=== PATIENT | female | born 1965 | race Caucasian/White ===

== ENCOUNTER 2020-10-30 04:13 | Emergency (ER) | payer OTHER ==
[~2020-10-30] VITALS: Ht 162.5 cm; Wt 56.7 kg
[2020-10-30 05:30] LABS: ALBUMIN 4.2 gm/dl (3.1-4.5); BUN 20 mg/dl (7-24); CHLORIDE 103 mmol/L (98-107); CREATININE 0.79 mg/dL (0.55-1.02); LIPASE 77 U/L (73-393); POTASSIUM 3.7 mmol/L (3.5-5.1); SGOT/AST 7 IU/L (3-35); SGPT/ALT 20 U/L (12-78); SODIUM 139 mmol/L (136-145)
[2020-10-30 05:31] LABS: ALKALINE PHOSPHATASE 72 U/L (45-117)
[2020-10-30 06:07] LABS: BASO # 0.1 10*3/uL (0.0-0.1); BASO % 0.6 % (0.0-1.0); EOS # 0.4 10*3/uL (0.0-0.4); EOS % 3.6 % (1.0-4.0); HEMATOCRIT 50.1 % (37.0-47.0); LYMPH # 0.8 10*3/uL (1.3-4.4); LYMPH % 7.9 % (27.0-41.0); MEAN CELL VOLUME 86.8 fl (81.0-99.0); MEAN CORPUSCULAR HGB 28.4 pg (27.0-31.0); MEAN CORPUSCULAR HGB CONC 32.7 g/dl (33.0-37.0); MONO # 0.4 10*3/uL (0.1-1.0); MONO % 3.5 % (3.0-9.0); NEUT # 8.8 10*3/uL (2.3-7.9); NEUT % 83.3 % (47.0-73.0); PLATELET COUNT AUTOMATED 333 10*3/uL (130-400); RED BLOOD COUNT 5.77 10*6/uL (4.10-5.10); RED CELL DISTRI WIDTH 12.6 % (0-14.5); WHITE BLOOD COUNT 10.5 10*3/uL (4.8-10.8)
[2020-10-30] MEDS ORDERED: ZOFRAN4 MG PO ×2 (09:49→09:55)
== END 2020-10-30 10:16 | disposition home or self-care (01) ==
LOC: ED 04:13
PROVIDERS: Internal Medicine
DX: R11.2 Nausea with vomiting, unspecified (principal); Z20.822 Contact with and (suspected) exposure to COVID-19; R10.11 Right upper quadrant pain; R51.9 Headache, unspecified

== ENCOUNTER 2021-04-20 02:43 | Emergency (ER) | payer OTHER ==
[~2021-04-20] VITALS: Ht 157.4 cm
[~2021-04-20 02:43] MED LIST: ZOFRAN4 MG PO
[2021-04-20] MEDS ORDERED: NAPROXEN250 MG PO (03:43)
[2021-04-20] MEDS ORDERED: METHOCARBAMOL500 M1 PO (03:43)
== END 2021-04-20 04:33 | disposition home or self-care (01) ==
LOC: ED 02:43
DX: S29.012A Strain of muscle and tendon of back wall of thorax, initial encounter (principal); M25.512 Pain in left shoulder; X58.XXXA Exposure to other specified factors, initial encounter; Y93.89 Activity, other specified; Y92.89 Other specified places as the place of occurrence of the external cause; Y99.8 Other external cause status

== ENCOUNTER 2023-03-31 16:55 | Emergency (ER) | payer BC ==
[~2023-03-31] VITALS: Ht 162.5 cm; Wt 59.0 kg
[~2023-03-31 16:55] MED LIST changes: +METHOCARBAMOL500 M1 PO; +NAPROXEN250 MG PO
[2023-03-31 19:43] LABS: BASO # 0.1 10*3/uL (0.0-0.1); BASO % 0.9 % (0.0-1.0); EOS # 0.1 10*3/uL (0.0-0.4); EOS % 1.3 % (1.0-4.0); HEMATOCRIT 44.4 % (37.0-47.0); LYMPH # 1.3 10*3/uL (1.3-4.4); LYMPH % 18.8 % (27.0-41.0); MEAN CELL VOLUME 84.9 fl (81.0-99.0); MEAN CORPUSCULAR HGB 27.7 pg (27.0-31.0); MEAN CORPUSCULAR HGB CONC 32.7 g/dl (33.0-37.0); MEAN PLATELET VOLUME 10.6 fl (9.6-12.3); MONO # 0.5 10*3/uL (0.1-1.0); MONO % 7.6 % (3.0-9.0); NEUT # 4.8 10*3/uL (2.3-7.9); PLATELET COUNT AUTOMATED 279 10*3/uL (130-400); RED BLOOD COUNT 5.23 10*6/uL (4.10-5.10); RED CELL DISTRI WIDTH 12.5 % (0-14.5); WHITE BLOOD COUNT 6.8 10*3/uL (4.8-10.8)
[2023-03-31 20:12] LABS: ALKALINE PHOSPHATASE 75 U/L (46-116); BUN 12 mg/dl (9-23); CHLORIDE 100 mmol/L (98-107); POTASSIUM 3.9 mmol/L (3.4-5.1); SGPT/ALT 12 U/L (5-49); TOTAL PROTEIN 7.2 gm/dL (6.0-8.0)
[2023-04-02 12:07] LABS: HEMOGOLBIN A1C 14.4 % (4.8-5.6)
== END 2023-03-31 23:06 | disposition home or self-care (01) ==
LOC: ED 16:55
PROVIDERS: Nurse Practitioner Family
DX: J11.1 Influenza due to unidentified influenza virus with other respiratory manifestations (principal); Z20.822 Contact with and (suspected) exposure to COVID-19; E11.65 Type 2 diabetes mellitus with hyperglycemia; R07.1 Chest pain on breathing; R10.2 Pelvic and perineal pain

== ENCOUNTER 2024-09-25 09:01 | Emergency (ER) | payer OTHER ==
[~2024-09-25] VITALS: Ht 162.5 cm; Wt 63.0 kg
[2024-09-25] MEDS ORDERED: Dexamethasone Sodium Phospha 20 MG/5 ML VIAL IM ONE (09:25)
[2024-09-25] MEDS ORDERED: NAPROSYN500 MG PO (09:26)
[2024-09-25] MEDS ORDERED: PREDNISONE20 M1 PO (09:26)
[2024-09-25] MEDS ORDERED: METHOCARBAMOL750 M1 PO (09:26)
[2024-09-25] MEDS ORDERED: TRAMADOL HCL50 MG PO (09:26)
== END 2024-09-25 09:42 | disposition home or self-care (01) ==
LOC: ED 09:01
DX: M54.32 Sciatica, left side (principal)